=== PATIENT | male | born 1960 | race African-American/Black ===

== ENCOUNTER 2023-09-29 15:28 | Emergency (ER) | payer BC ==
[~2023-09-29] VITALS: Ht 180.3 cm; Wt 62.1 kg
[~2023-09-29 15:28] MED LIST: LEVO-65 MT
[2023-09-29 15:43] VITALS: TEMP 98.2; O2SAT 96
[2023-09-29 18:04] VITALS: BP 90/55; PULSE 70; RESP 18
== END 2023-09-29 18:05 | disposition home or self-care (01) ==
LOC: ER 15:28
DX: M79.89 Other specified soft tissue disorders (principal); J44.1 Chronic obstructive pulmonary disease with (acute) exacerbation; Z85.9 Personal history of malignant neoplasm, unspecified
CPT/HCPCS: 73610; 93970; 99284

== ENCOUNTER 2024-01-07 13:47 | Inpatient (IN) | payer BC ==
[~2024-01-07] VITALS: Ht 180.3 cm; Wt 68.5 kg
[2024-01-07 14:42] LABS: HEMATOCRIT. 34.4 % (42.0-52.0); HEMOGLOBIN. 11.2 g/dL (14.0-18.0); MEAN CORPUSCULAR HEMOGLOBIN 24.7 pg (28.0-32.0); MEAN CORPUSCULAR HGB CONC 32.6 g/dL (31.0-37.0); MEAN CORPUSCULAR VOLUME 75.7 fL (80.0-94.0); MEAN PLATELET VOLUME 7.6 fl (7.4-10.4); PLATELET 282 x1000/uL (130-400); RED BLOOD CELL COUNT 4.55 mill/uL (4.7-6.1); RED CELL DISTRIBUTION WIDTH 16.5 % (11.6-14.6); WHITE BLOOD COUNT 19.2 x1000/uL (4.5-11.0)
[2024-01-07 14:43] LABS: DIFFERENTIAL COMMENT 1
[2024-01-07 14:48] LABS: CARBON DIOXIDE 26 mEq/L (21-32); CHLORIDE 100 mEq/L (98-107); POTASSIUM 4.2 mEq/L (3.5-5.1); SODIUM 132 mEq/L (136-145)
[2024-01-07 14:49] LABS: CALCIUM 9.1 mg/dL (8.7-10.4)
[2024-01-07 14:54] LABS: GLUCOSE 114 mg/dL (70-105); PLATELET ESTIMATE NORMAL; TROPONIN I HIGH SENSITIVITY 16 ng/L (3.0-53); UREA NITROGEN BLOOD 31 mg/dL (9-23)
[2024-01-07 14:55] LABS: ALANINE AMINOTRANSFERASE < 7 IU/L (10-49)
[2024-01-07 14:56] LABS: ALBUMIN 4.1 g/dL (3.2-4.8); ASPARTATE AMINOTRANSFERASE 19 IU/L (<34); BILIRUBIN DIRECT 0.5 mg/dL (<=3.0); PROTEIN TOTAL 7.5 g/dL (6.0-8.3)
[2024-01-07 15:25] LABS: CREATININE 1.4 mg/dL (0.6-1.3)
[2024-01-07] MEDS: SODIUM CHLORIDE 0.9% 1000ML BAG (SEPSIS BOLUS) IV ONE (15:49)
[2024-01-07] MEDS: ACETAMINOPHEN 325MG TABLET PO STA (15:49)
[2024-01-07] MEDS: AZITHROMYCIN 500MG/250ML 250 ML IV SCH (15:49)
[2024-01-07] MEDS: CEFTRIAXONE 2GM/50ML 50 ML IV ONE (17:22)
[2024-01-07 19:06] LABS: CLARITY URINE CLOUDY (CLEAR); COLOR URINE YELLOW (YELLOW); GLUCOSE URINE NEGATIVE (NEGATIVE); KETONES URINE NEGATIVE (NEGATIVE); LEUKOCYTE ESTERASE URINE NEGATIVE (NEGATIVE); NITRITE URINE NEGATIVE (NEGATIVE); OCCULT BLOOD URINE 2+ (NEGATIVE); PROTEIN URINE 2+ (NEGATIVE); SPECIFIC GRAVITY URINE 1.017 (1.005-1.030)
[2024-01-07 19:32] LABS: BACTERIA URINE NONE SEEN; FINE GRANULAR CASTS URINE 0-5 /lpf; RBC URINE 0-2 /hpf (0-2); SQUAMOUS EPITHELIAL CELL URINE 1+ /lpf (RARE/1+); WBC URINE 0-2 /hpf (0-2)
[2024-01-08] VITALS (12 sets, daily range): BP systolic 91–162; BP diastolic 58–110; PULSE 69–93; RESP 10–20; TEMP 97–98.9
[2024-01-08] MEDS ORDERED: SODIUM CHLORIDE 0.9% 1000ML BAG (SEPSIS BOLUS) IV ONE (07:15)
[2024-01-08] MEDS ORDERED: IPRATROPIUM/ALBUTEROL 0.5-3(2.5)MG/3ML NEB HHN PRN (07:15)
[2024-01-08 09:06] LABS: HEMOGLOBIN. 9.7 g/dL (14.0-18.0); MEAN CORPUSCULAR HEMOGLOBIN 24.8 pg (28.0-32.0); MEAN CORPUSCULAR HGB CONC 32.2 g/dL (31.0-37.0); MEAN CORPUSCULAR VOLUME 77.2 fL (80.0-94.0); PLATELET 243 x1000/uL (130-400); RED BLOOD CELL COUNT 3.89 mill/uL (4.7-6.1); RED CELL DISTRIBUTION WIDTH 16.8 % (11.6-14.6); WHITE BLOOD COUNT 16.8 x1000/uL (4.5-11.0)
[2024-01-08 09:12] LABS: CHLORIDE 108 mEq/L (98-107); POTASSIUM 3.7 mEq/L (3.5-5.1); SODIUM 134 mEq/L (136-145)
[2024-01-08 09:13] LABS: CALCIUM 8.2 mg/dL (8.7-10.4); CARBON DIOXIDE 21 mEq/L (21-32)
[2024-01-08 09:18] LABS: CREATININE 0.9 mg/dL (0.6-1.3); GLUCOSE 91 mg/dL (70-105); UREA NITROGEN BLOOD 21 mg/dL (9-23)
[2024-01-08 09:19] LABS: DIFFERENTIAL COMMENT 1
[2024-01-08] MEDS: PIPERACILLIN/TAZO 3.375G/50ML 50 ML IV SCH (10:27)
[2024-01-08] MEDS: ENOXAPARIN 40MG/0.4ML SYR SUBCUT SCH (10:28)
[2024-01-08] MEDS: PANTOPRAZOLE SODIUM 40 MG/VIAL IV SCH (10:28)
[2024-01-08] MEDS: ACETAMINOPHEN 650MG/20.3ML UDC PO PRN (10:29)
[2024-01-08] MEDS: METHYLPREDNISOLONE SOD SUCC 40MG/ML (ACT-O-VIAL) IV SCH (10:30)
[2024-01-08 11:00] LABS: ANISOCYTOSIS 1+; MICROCYTOSIS 1+; PLATELET ESTIMATE NORMAL
[2024-01-08] MEDS: MIDODRINE HCL 5MG TABLET PO SCH (12:17)
[2024-01-08] MEDS: SODIUM CHLORIDE 0.9% 1,000 ML IV SCH (12:18)
[2024-01-08] MEDS: AZITHROMYCIN 500MG/250ML 250 ML IV SCH (13:54)
[2024-01-08 18:01] LABS: BG BASE EXCESS -3.3 mmol/L (-2.0-2.0); BG CARBOXYHEMOGLOBIN 0.3 % (0.5-1.5); BG DEOXYHEMOGLOBIN 1.3 % (0.0-5.0); BG FRACTION INSPIRED OXYGEN 44; BG HCO3 ACT 21.4 mmol/L (22.0-26.0); BG METHEMOGLOBIN 0.3 % (0.0-1.5); BG OXYGEN SATURATION 98.7 % (92.0-98.5); BG OXYHEMOGLOBIN 98.1 % (94.0-97.0); BG PCO2 37.3 mmHg (35.0-45.0); BG PH 7.377 (7.350-7.450); BG PO2 151.3 mmHg (75.0-100.0); BG SAMPLE SITE RIGHT RADIAL; BG VENT MODE NASAL CANNULA
[2024-01-08] MEDS: VANCOMYCIN 1.25GM PMX (XELLIA) 250 ML IV NR (23:54)
[2024-01-09] VITALS (18 sets, daily range): BP systolic 91–167; BP diastolic 63–120; PULSE 61–86; RESP 11–19; TEMP 96.9–98
[2024-01-09] MEDS ORDERED: IOHEXOL-350 100 ML BOTTLE ONE (11:10)
[2024-01-09] MEDS ORDERED: VANCOMYCIN 750MG/150ML IV SCH (12:00)
[2024-01-09] MEDS: ENOXAPARIN 30MG/0.3ML SYR SUBCUT SCH (13:33)
[2024-01-09] MEDS ORDERED: IPRATROPIUM/ALBUTEROL 0.5-3(2.5)MG/3ML NEB HHN SCH (16:00)
[2024-01-09 17:09] LABS: HEMATOCRIT. 34.2 % (42.0-52.0); HEMOGLOBIN. 11.1 g/dL (14.0-18.0); MEAN CORPUSCULAR HEMOGLOBIN 24.8 pg (28.0-32.0); MEAN CORPUSCULAR HGB CONC 32.4 g/dL (31.0-37.0); MEAN CORPUSCULAR VOLUME 76.4 fL (80.0-94.0); MEAN PLATELET VOLUME 7.9 fl (7.4-10.4); PLATELET 416 x1000/uL (130-400); RED BLOOD CELL COUNT 4.47 mill/uL (4.7-6.1); RED CELL DISTRIBUTION WIDTH 16.6 % (11.6-14.6); WHITE BLOOD COUNT 11.7 x1000/uL (4.5-11.0)
[2024-01-09 17:18] LABS: DIFFERENTIAL COMMENT 1
[2024-01-09 17:19] LABS: PROTHROMBIN TIME 11.5 sec (9.6-11.0)
[2024-01-09 17:26] LABS: CHLORIDE 104 mEq/L (98-107); POTASSIUM 3.9 mEq/L (3.5-5.1); SODIUM 130 mEq/L (136-145)
[2024-01-09 17:27] LABS: CARBON DIOXIDE 19 mEq/L (21-32)
[2024-01-09 17:28] LABS: CALCIUM 8.9 mg/dL (8.7-10.4)
[2024-01-09 17:33] LABS: GLUCOSE 170 mg/dL (70-105); UREA NITROGEN BLOOD 24 mg/dL (9-23)
[2024-01-09 17:54] LABS: HYPOCHROMASIA 1+; MICROCYTOSIS 1+; PLATELET ESTIMATE INCREASED
[2024-01-09] MEDS: GUAIFENESIN 200MG/10ML SUGAR FREE UDC PO PRN (21:10)
[2024-01-09] MEDS: ENOXAPARIN 80MG/0.8ML SYR SUBCUT SCH (21:10)
[2024-01-10] VITALS (14 sets, daily range): BP systolic 114–162; BP diastolic 78–117; PULSE 66–85; RESP 11–20; TEMP 97.2–98.7
[2024-01-10 08:50] LABS: HEMOGLOBIN. 10.5 g/dL (14.0-18.0); MEAN CORPUSCULAR HGB CONC 32.8 g/dL (31.0-37.0); MEAN CORPUSCULAR VOLUME 76.3 fL (80.0-94.0); MEAN PLATELET VOLUME 7.6 fl (7.4-10.4); PLATELET 384 x1000/uL (130-400); RED BLOOD CELL COUNT 4.19 mill/uL (4.7-6.1); RED CELL DISTRIBUTION WIDTH 16.8 % (11.6-14.6); WHITE BLOOD COUNT 10.9 x1000/uL (4.5-11.0)
[2024-01-10 09:01] LABS: CHLORIDE 107 mEq/L (98-107); DIFFERENTIAL COMMENT 1; POTASSIUM 4.1 mEq/L (3.5-5.1); SODIUM 133 mEq/L (136-145)
[2024-01-10 09:02] LABS: CALCIUM 8.8 mg/dL (8.7-10.4); CARBON DIOXIDE 23 mEq/L (21-32)
[2024-01-10 09:07] LABS: GLUCOSE 109 mg/dL (70-105); UREA NITROGEN BLOOD 25 mg/dL (9-23)
[2024-01-10] MEDS: METHYLPREDNISOLONE SOD SUCC 40MG/ML (ACT-O-VIAL) IV SCH (10:09)
[2024-01-10 17:27] LABS: BG CARBOXYHEMOGLOBIN 0.3 % (0.5-1.5); BG DEOXYHEMOGLOBIN 6.7 % (0.0-5.0); BG FRACTION INSPIRED OXYGEN 21; BG HCO3 ACT 24.2 mmol/L (22.0-26.0); BG METHEMOGLOBIN 0.1 % (0.0-1.5); BG OXYGEN SATURATION 93.3 % (92.0-98.5); BG OXYHEMOGLOBIN 92.9 % (94.0-97.0); BG PCO2 37.9 mmHg (35.0-45.0); BG PH 7.423 (7.350-7.450); BG PO2 70.9 mmHg (75.0-100.0); BG SAMPLE SITE RIGHT BRACHIAL; BG TOTAL HEMOGLOBIN 13.9 g/dL (12.0-18.0); BG VENT MODE ROOM AIR
[2024-01-10 17:39] LABS: MICROCYTOSIS 1+; PLATELET ESTIMATE NORMAL
[2024-01-10] MEDS: CLONIDINE 0.1MG TABLET PO PRN (22:37)
[2024-01-11] VITALS: BP 142/93; PULSE 81; RESP 18; TEMP 97.9
[2024-01-11 04:00] VITALS: BP 153/92; PULSE 68; RESP 18; TEMP 97.7
[2024-01-11 07:19] LABS: CARBON DIOXIDE 27 mEq/L (21-32); CHLORIDE 104 mEq/L (98-107); POTASSIUM 3.9 mEq/L (3.5-5.1); SODIUM 137 mEq/L (136-145)
[2024-01-11 07:20] LABS: CALCIUM 8.6 mg/dL (8.7-10.4)
[2024-01-11 07:25] LABS: CREATININE 0.9 mg/dL (0.6-1.3); GLUCOSE 84 mg/dL (70-105); UREA NITROGEN BLOOD 23 mg/dL (9-23)
[2024-01-11 08:00] VITALS: BP 131/87; PULSE 68; RESP 20; TEMP 97.5
[2024-01-11 08:04] LABS: DIFFERENTIAL COMMENT 0; EOSINOPHILS % 0.3 % (0.0-5.0); HEMATOCRIT. 29.7 % (42.0-52.0); HEMOGLOBIN. 9.6 g/dL (14.0-18.0); MEAN CORPUSCULAR HEMOGLOBIN 24.5 pg (28.0-32.0); MEAN CORPUSCULAR HGB CONC 32.3 g/dL (31.0-37.0); MEAN CORPUSCULAR VOLUME 75.7 fL (80.0-94.0); MEAN PLATELET VOLUME 7.6 fl (7.4-10.4); MONOCYTES % 9.6 % (2.0-8.0); NEUTROPHILS % 74.1 % (40.0-76.0); PLATELET 297 x1000/uL (130-400); RED BLOOD CELL COUNT 3.92 mill/uL (4.7-6.1); RED CELL DISTRIBUTION WIDTH 16.6 % (11.6-14.6); WHITE BLOOD COUNT 5.7 x1000/uL (4.5-11.0)
[2024-01-11] MEDS: FAMOTIDINE 20MG/2ML VIAL IV SCH (08:58)
[2024-01-11] MEDS: AMLODIPINE 5MG TABLET PO SCH (08:58)
[2024-01-11 12:00] VITALS: BP 116/74; PULSE 79; RESP 20; TEMP 97.5
[2024-01-11] MEDS ORDERED: AMLO5TAB88 MT (12:58)
[2024-01-11] MEDS ORDERED: APIX5TAB MT (12:58)
[2024-01-11 15:06] VITALS: BP 116/74; PULSE 68; TEMP 97.5; O2SAT 96
[2024-01-11 16:00] VITALS: BP 119/80; PULSE 14; RESP 20; TEMP 97.9
[2024-01-11] MEDS: APIXABAN 5 MG TABLET PO SCH (16:20)
== END 2024-01-11 19:13 | disposition home or self-care (01) | DRG 871 ==
LOC: ER 13:47 → EDBEDREQ 15:21 → 5EST 17:03 → EDBEDREQTM 17:05 → EDBEDREQ 17:05 → EDBEDREQTM 19:24 → EDBEDREQSVC 19:24 → 8WST 01-10 23:09
PROVIDERS: ADMIT Internal Medicine; ATTEND Internal Medicine
DX: A41.9 Sepsis, unspecified organism (principal); I26.99 Other pulmonary embolism without acute cor pulmonale; J18.9 Pneumonia, unspecified organism; J96.00 Acute respiratory failure, unspecified whether with hypoxia or hypercapnia; R65.21 Severe sepsis with septic shock; J44.0 Chronic obstructive pulmonary disease with (acute) lower respiratory infection; Z20.822 Contact with and (suspected) exposure to COVID-19; D64.9 Anemia, unspecified; I10 Essential (primary) hypertension; Z85.819 Personal history of malignant neoplasm of unspecified site of lip, oral cavity, and pharynx; Z88.8 Allergy status to other drugs, medicaments and biological substances; Z79.899 Other long term (current) drug therapy
CPT/HCPCS: 36415; 36600; 71045; 71275; 80048; 80076; 80202; 81003; 82375; 82805; 83605; 83880; 84145; 84484; 85025; 85379; 87426; 93005; 93306; 93970; 99291; C9113; J0456; J0696; J1650; J2543; J2920; J3370; J3490; J7030; Q9967